=== PATIENT | female | born 2000 | race Caucasian/White ===

== ENCOUNTER 2024-10-20 09:15 | Emergency (ER) | payer SELFPAY | END 2024-10-20 11:20 | disposition home or self-care (01) | LOC: MW.ED 09:15 | DX: S30.0XXA Contusion of lower back and pelvis, initial encounter (principal); Z88.0 Allergy status to penicillin; W18.39XA Other fall on same level, initial encounter; Y93.89 Activity, other specified | CPT/HCPCS: 72100; 81025; 99283; A9270; 99282 ==